=== PATIENT | male | born 1935 | race Caucasian/White ===

== ENCOUNTER 2019-11-02 03:53 | Inpatient (IN) | payer MEDICARE, OTHER ==
[~2019-11-02] VITALS: Ht 165.1 cm; Wt 75.7 kg
[2019-11-02] MEDS ORDERED: ACETAMINOPHEN 325 MG TABLET PO PRN (04:30)
[2019-11-02] MEDS ORDERED: TEMAZEPAM 7.5 MG CAPSULE PO PRN (04:30)
[2019-11-02] MEDS ORDERED: MAGNESIUM HYDROXIDE 30 ML UDC PO PRN (04:30)
[2019-11-02] MEDS ORDERED: MAG HYDROX/AL HYDROX/SIMETH 30 ML UDC PO PRN (04:30)
[2019-11-02] MEDS ORDERED: ATOR40TA PO (04:36)
[2019-11-02] MEDS ORDERED: CLON0.2T PO (04:41)
[2019-11-02] MEDS ORDERED: CLON1PAT14 TD (04:44)
[2019-11-02] MEDS ORDERED: CLOP75TA15 PO (04:45)
[2019-11-02] MEDS ORDERED: FERR325T23 PO (04:46)
[2019-11-02] MEDS ORDERED: FURO40TA5 PO (04:47)
[2019-11-02] MEDS ORDERED: INSU100I47 SQ (04:52)
[2019-11-02] MEDS ORDERED: INSU100V10 SQ (04:57)
[2019-11-02] MEDS ORDERED: LABE100T5 PO (04:58)
[2019-11-02] MEDS ORDERED: MELA3TAB41 PO (04:59)
[2019-11-02] MEDS ORDERED: clonazePAM 0.5 MG TABLET PO PRN (05:00)
[2019-11-02] MEDS ORDERED: BLOOD SUGAR DIAGNOSTIC 1 EACH STRIP IN ONE (05:00)
[2019-11-02] MEDS ORDERED: PANT40TA4 PO (05:00)
[2019-11-02] MEDS ORDERED: SITA1TAB6 PO (05:02)
[2019-11-02] MEDS ORDERED: TAMS-12 PO (05:03)
[2019-11-02] MEDS ORDERED: VALS40TA4 PO (05:04)
--- NOTE | 2019-11-02 05:17 | NUR ---
GPS RN NOTE, PAGED DR SHOLA DELAROSA THAT NEW ADMISSION HAS ARRIVED, NEEDS A ACCU CHECK ORDER WITH SLIDING SCALE FOR A BLOOD SUGAR OF 160, AND NEEDS A MEDICATION RECONCILIATION. AWAITING RESPONSE. WILL CONTINUE TO MONITOR THIS PATIENT WITH THE HELP OF STAFF.
[2019-11-02 05:19] VITALS: BP 158/73
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
[2019-11-02] MEDS: BLOOD SUGAR DIAGNOSTIC 1 EACH STRIP IN SCH ×4 (07:58→21:24)
[2019-11-02 08:00] VITALS: BP 162/86
[2019-11-02] MEDS ORDERED: CLONIDINE HCL 0.3 MG/24H PTWK 1 EA PATCH TD SCH (08:00)
[2019-11-02] MEDS ORDERED: CLONIDINE HCL 0.2 MG TABLET PO PRN (08:00)
[2019-11-02] MEDS ORDERED: DEXTROSE 50%-WATER 50 ML DISP.SYRIN IV PRN (08:00)
[2019-11-02] MEDS ORDERED: CLONIDINE HCL 0.1 MG TABLET PO PRN (08:02)
[2019-11-02] MEDS: INSULIN REGULAR, HUMAN 100 UNIT/ML 3 ML VIAL SQ PRN ×4 (08:09→21:38)
[2019-11-02] MEDS: CLOPIDOGREL BISULFATE 75 MG TABLET PO SCH (08:31)
[2019-11-02] MEDS: FERROUS SULFATE (325 MG) 325 MG/TAB TABLET PO SCH ×2 (08:31→17:01)
[2019-11-02] MEDS: PANTOPRAZOLE 40 MG TABLET.DR PO SCH (08:31)
[2019-11-02] MEDS: FUROSEMIDE 40 MG TABLET PO SCH ×2 (08:32→17:16)
[2019-11-02] MEDS: VALSARTAN 40 MG TABLET PO SCH (08:57)
[2019-11-02] MEDS: LABETALOL HCL (100MG) 100 MG TABLET PO SCH ×2 (08:57→17:17)
[2019-11-02 09:00] LABS: BASOPHILS % (AUTO) 0.7 % (0.0-2.0); EOSINOPHILS % (AUTO) 2.7 % (0.0-6.0); HEMATOCRIT 40 % (39-51); HEMOGLOBIN 13.3 g/dL (13.5-17.5); LYMPHOCYTES # (AUTO) 1.2 /CMM (0.8-4.8); MEAN CORPUSCULAR HGB CONC 33 g/dl (31.0-36.0); MEAN CORPUSCULAR VOLUME 92 fL (80-96); MONOCYTES # (AUTO) 0.4 /CMM (0.1-1.30); MONOCYTES % (AUTO) 8.2 % (2.0-12.0); NEUTROPHILS # (AUTO) 3.5 /CMM (1.8-8.9); NEUTROPHILS % (AUTO) 66.4 % (43.0-81.0); PLATELET COUNT (AUTO) 334 /CMM (150-450); RED BLOOD CELL COUNT(AUTO) 4.37 MIL/uL (4.5-6.0); WHITE BLOOD COUNT (AUTO) 5.3 K/uL (4.3-11.0)
--- NOTE | 2019-11-02 09:00 | NUR ---
RN NOTE- PT IN ROOM INTERACTIVE WHEN QUESTIONED, ALERT ORIENTED CALM DIRECTABLE NEEDS ATTENDED, MED COMPLIANT, DENIES ALL. SOMEWHAT PARANOID GUARDED.
[2019-11-02 09:14] LABS: CALCIUM, SERUM 10.1 mg/dL (8.5-10.1); CREATININE 0.9 mg/dL (0.6-1.3); POTASSIUM 4.1 mmol/L (3.5-5.1)
[2019-11-02] MEDS: LINAGLIPTIN 5 MG TABLET PO SCH (10:12)
[2019-11-02] MEDS: METFORMIN 500 MG TABLET PO SCH ×2 (10:12→17:02)
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
--- NOTE | 2019-11-02 11:19 | NUR ---
Initial Discharge Plan: Pt currently resides with his daughter, Nilam ([phone]), in her home located at [address] [place] [address]. Per pts daughter, she can no longer take care of him and needs him to be placed in a facility. SW will work with the pt and the MD regarding appropriate discharge planning. SW will form a safe and proper discharge.
[2019-11-02 16:00] VITALS: BP 136/76
[2019-11-02] MEDS ORDERED: Medication Not On Formulary EA (Sitagliptin Phos/Metformin Hcl (Janumet 50-1,000 Mg Tabl PO SCH (16:30)
[2019-11-02] MEDS: ATORVASTATIN 40 MG TABLET PO SCH (18:30)
[2019-11-02] MEDS: TAMSULOSIN 0.4 MG CAP.SR.24H PO SCH (18:30)
[2019-11-02 20:06] VITALS: BP 132/70
[2019-11-02] MEDS: OLANZAPINE 5 MG/TAB.RAPDIS PO SCH (21:24)
[2019-11-02] MEDS: INSULIN GLARGINE, 100 UNIT/ML CARTRIDGE SQ SCH (21:35)
[2019-11-03] MEDS: BLOOD SUGAR DIAGNOSTIC 1 EACH STRIP IN SCH ×4 (07:24→21:38)
[2019-11-03] MEDS: INSULIN REGULAR, HUMAN 100 UNIT/ML 3 ML VIAL SQ PRN ×3 (07:29→21:42)
[2019-11-03] MEDS: PANTOPRAZOLE 40 MG TABLET.DR PO SCH (07:48)
[2019-11-03 08:00] VITALS: BP 132/71
[2019-11-03] MEDS: FERROUS SULFATE (325 MG) 325 MG/TAB TABLET PO SCH ×2 (08:00→17:25)
[2019-11-03] MEDS: FUROSEMIDE 40 MG TABLET PO SCH ×2 (08:00→17:24)
[2019-11-03] MEDS: LINAGLIPTIN 5 MG TABLET PO SCH (08:00)
[2019-11-03] MEDS: CLOPIDOGREL BISULFATE 75 MG TABLET PO SCH (08:00)
[2019-11-03] MEDS: METFORMIN 500 MG TABLET PO SCH ×2 (08:00→17:24)
[2019-11-03] MEDS: LABETALOL HCL (100MG) 100 MG TABLET PO SCH ×2 (08:05→17:00)
[2019-11-03] MEDS: OLANZAPINE 5 MG/TAB.RAPDIS PO SCH ×2 (08:05→21:36)
[2019-11-03] MEDS: VALSARTAN 40 MG TABLET PO SCH (08:06)
[2019-11-03 16:00] VITALS: BP 119/62
[2019-11-03] MEDS: TAMSULOSIN 0.4 MG CAP.SR.24H PO SCH (17:24)
[2019-11-03] MEDS: ATORVASTATIN 40 MG TABLET PO SCH (17:25)
[2019-11-03 20:25] VITALS: BP 164/73
[2019-11-03] MEDS: INSULIN GLARGINE, 100 UNIT/ML CARTRIDGE SQ SCH (21:44)
[2019-11-04] MEDS: BLOOD SUGAR DIAGNOSTIC 1 EACH STRIP IN SCH ×4 (07:33→21:36)
[2019-11-04] MEDS: INSULIN REGULAR, HUMAN 100 UNIT/ML 3 ML VIAL SQ PRN ×2 (07:38→11:46)
[2019-11-04 08:00] VITALS: BP 122/64
[2019-11-04] MEDS: PANTOPRAZOLE 40 MG TABLET.DR PO SCH (08:10)
[2019-11-04] MEDS: METFORMIN 500 MG TABLET PO SCH ×2 (08:14→17:23)
[2019-11-04] MEDS: FERROUS SULFATE (325 MG) 325 MG/TAB TABLET PO SCH ×2 (08:14→17:28)
[2019-11-04] MEDS: LINAGLIPTIN 5 MG TABLET PO SCH (08:14)
[2019-11-04] MEDS: CLOPIDOGREL BISULFATE 75 MG TABLET PO SCH (08:14)
[2019-11-04] MEDS: FUROSEMIDE 40 MG TABLET PO SCH ×2 (08:14→17:23)
[2019-11-04] MEDS: LABETALOL HCL (100MG) 100 MG TABLET PO SCH ×2 (08:15→17:00)
[2019-11-04] MEDS: OLANZAPINE 5 MG/TAB.RAPDIS PO SCH ×2 (08:15→21:30)
[2019-11-04] MEDS: VALSARTAN 40 MG TABLET PO SCH (08:16)
[2019-11-04 16:00] VITALS: BP 125/55
[2019-11-04] MEDS: ATORVASTATIN 40 MG TABLET PO SCH (17:23)
[2019-11-04] MEDS: TAMSULOSIN 0.4 MG CAP.SR.24H PO SCH (17:24)
[2019-11-04 20:16] VITALS: BP 119/50
[2019-11-04] MEDS: INSULIN GLARGINE, 100 UNIT/ML CARTRIDGE SQ SCH (21:58)
--- NOTE | 2019-11-04 21:58 | NUR ---
RN NOTES PATIENT BLOOD SUGAR 121, NO INSULIN COVERAGE NEEDED PER SLIDING SCALE PROTOCOL. ADMINISTERED LANTUS 10 UNITS ORDERED. PROVIDED SNACKS TO PATIENT, AND WILL CONTINUE TO MONITOR PATIENT.
[2019-11-05] MEDS: BLOOD SUGAR DIAGNOSTIC 1 EACH STRIP IN SCH ×4 (07:20→21:15)
[2019-11-05] MEDS: PANTOPRAZOLE 40 MG TABLET.DR PO SCH (07:50)
[2019-11-05 08:00] VITALS: BP 144/72
[2019-11-05] MEDS: OLANZAPINE 5 MG/TAB.RAPDIS PO SCH ×2 (08:00→21:15)
[2019-11-05] MEDS: FERROUS SULFATE (325 MG) 325 MG/TAB TABLET PO SCH ×2 (08:00→17:28)
[2019-11-05] MEDS: LINAGLIPTIN 5 MG TABLET PO SCH (08:00)
[2019-11-05] MEDS: METFORMIN 500 MG TABLET PO SCH ×2 (08:00→17:28)
[2019-11-05] MEDS: VALSARTAN 40 MG TABLET PO SCH (08:01)
[2019-11-05] MEDS: FUROSEMIDE 40 MG TABLET PO SCH ×2 (08:01→17:28)
[2019-11-05] MEDS: LABETALOL HCL (100MG) 100 MG TABLET PO SCH ×2 (08:02→17:00)
[2019-11-05] MEDS: CLOPIDOGREL BISULFATE 75 MG TABLET PO SCH (08:09)
--- NOTE | 2019-11-05 14:25 | NUR ---
GROUP THERAPY: SW encouraged pt to attend group therapy on this present day to discuss discharge plan, pt was laying in bed and refused to participate. SW attempted to provide individual intervention to discuss pts mood, pt yelled at SW "get out." SW will attempt group milieu at a later time.
[2019-11-05 16:00] VITALS: BP 107/52
[2019-11-05] MEDS: INSULIN REGULAR, HUMAN 100 UNIT/ML 3 ML VIAL SQ PRN (17:22)
[2019-11-05] MEDS: ATORVASTATIN 40 MG TABLET PO SCH (17:28)
[2019-11-05] MEDS: TAMSULOSIN 0.4 MG CAP.SR.24H PO SCH (17:28)
[2019-11-05 20:49] VITALS: BP 102/57
[2019-11-05] MEDS: INSULIN GLARGINE, 100 UNIT/ML CARTRIDGE SQ SCH (21:17)
[2019-11-06] MEDS: BLOOD SUGAR DIAGNOSTIC 1 EACH STRIP IN SCH ×4 (07:48→21:42)
[2019-11-06 08:00] VITALS: BP 123/62
[2019-11-06] MEDS: PANTOPRAZOLE 40 MG TABLET.DR PO SCH (08:18)
[2019-11-06] MEDS: OLANZAPINE 5 MG/TAB.RAPDIS PO SCH ×2 (08:19→21:39)
[2019-11-06] MEDS: FERROUS SULFATE (325 MG) 325 MG/TAB TABLET PO SCH ×2 (08:19→17:06)
[2019-11-06] MEDS: LINAGLIPTIN 5 MG TABLET PO SCH (08:19)
[2019-11-06] MEDS: CLOPIDOGREL BISULFATE 75 MG TABLET PO SCH (08:19)
[2019-11-06] MEDS: FUROSEMIDE 40 MG TABLET PO SCH ×2 (08:19→17:05)
[2019-11-06] MEDS: METFORMIN 500 MG TABLET PO SCH ×2 (08:19→17:05)
[2019-11-06] MEDS: VALSARTAN 40 MG TABLET PO SCH (08:20)
[2019-11-06] MEDS: LABETALOL HCL (100MG) 100 MG TABLET PO SCH ×2 (08:20→17:06)
--- NOTE | 2019-11-06 08:52 | NUR ---
SNF Referral: SW faxed a referral to the following two facilities listed below: [facility] with attn to Admissions to the fax number: [phone] [facility] with attn to HAL and Dann to the fax number: [phone].
--- NOTE | 2019-11-06 12:22 | NUR ---
RN NOTE: ACCUCHECK 128. NO INSULIN COVERAGE
--- NOTE | 2019-11-06 14:20 | NUR ---
SNF Referral: SHRUTI faxed a referral to [facility] with attn to Anjelica to the fax number: [phone].
--- NOTE | 2019-11-06 14:57 | NUR ---
Individual Counseling: This SW met with pt. to facilitate individual counseling regarding support systems. The patient presented sitting on the edge of his bed and was calm and receptive to speaking with SW. SW attempted to engage the pt. in discussions regarding his support system. The patient stated he has a daughter, Nilam who he can reach out to in time of need. However, patient was also responding to SW in another language. Patient contunously stated, "I don't understand". The individual counseling was unsuccessful due to language barrier. Patient will be invited to the next therapeutic milieu.
[2019-11-06 16:00] VITALS: BP 145/62
--- NOTE | 2019-11-06 16:19 | NUR ---
SNF Contact: Anjelica ([phone]) from [facility] contacted the SW and stated that the pt was accepted to their facility once stable at the time of discharge.
--- NOTE | 2019-11-06 16:20 | NUR ---
Family Contact: SW called the pts daughter, Nilam ([phone]), and informed her that the pt was accepted to a facility called [facility] and that he does not have a discharge date at this time.
[2019-11-06] MEDS: TAMSULOSIN 0.4 MG CAP.SR.24H PO SCH (17:05)
[2019-11-06] MEDS: ATORVASTATIN 40 MG TABLET PO SCH (17:06)
[2019-11-06 20:02] VITALS: BP 128/60
[2019-11-06] MEDS: INSULIN GLARGINE, 100 UNIT/ML CARTRIDGE SQ SCH (21:48)
[2019-11-06] MEDS: INSULIN REGULAR, HUMAN 100 UNIT/ML 3 ML VIAL SQ PRN (21:52)
[2019-11-07] MEDS: BLOOD SUGAR DIAGNOSTIC 1 EACH STRIP IN SCH ×4 (07:35→21:14)
[2019-11-07 08:00] VITALS: BP 141/59
[2019-11-07] MEDS: PANTOPRAZOLE 40 MG TABLET.DR PO SCH (08:19)
[2019-11-07] MEDS: CLOPIDOGREL BISULFATE 75 MG TABLET PO SCH (08:19)
[2019-11-07 08:20] VITALS: BP 125/87
[2019-11-07] MEDS: METFORMIN 500 MG TABLET PO SCH ×2 (08:20→17:00)
[2019-11-07] MEDS: FUROSEMIDE 40 MG TABLET PO SCH ×2 (08:20→17:00)
[2019-11-07] MEDS: VALSARTAN 40 MG TABLET PO SCH (08:20)
[2019-11-07] MEDS: FERROUS SULFATE (325 MG) 325 MG/TAB TABLET PO SCH ×2 (08:20→17:00)
[2019-11-07] MEDS: LINAGLIPTIN 5 MG TABLET PO SCH (09:30)
[2019-11-07 09:31] VITALS: BP 132/60
[2019-11-07] MEDS: LABETALOL HCL (100MG) 100 MG TABLET PO SCH ×2 (09:31→17:00)
--- NOTE | 2019-11-07 11:30 | NUR ---
SNF Referral: Per pts daughter's request, SHRUTI faxed a referral to [facility] with attention to Elisa to the fax number: [phone]. SHRUTI also called [facility] but they are not accepting pts at this time.
[2019-11-07] MEDS: INSULIN REGULAR, HUMAN 100 UNIT/ML 3 ML VIAL SQ PRN ×2 (11:55→21:21)
--- NOTE | 2019-11-07 14:23 | NUR ---
SNF Contact: Elisa ([phone]) from [facility] contacted the and stated that they are not accepting beds at this time.
--- NOTE | 2019-11-07 14:27 | NUR ---
Family Contact: SW called the pts daughter, Nilam ([phone]), and informed her that the pt was not accepted to [facility] or [facility]. Pts daughter stated that she would like to keep trying facilities in her area.
[2019-11-07 16:00] VITALS: BP 106/54
[2019-11-07] MEDS: ATORVASTATIN 40 MG TABLET PO SCH (17:02)
[2019-11-07] MEDS: TAMSULOSIN 0.4 MG CAP.SR.24H PO SCH (17:02)
--- NOTE | 2019-11-07 19:40 | NUR ---
GPS RN OPENING NOTE: RECEIVED PT IN BED, AOX3. NO ACUTE DISTRESS. PT CALM AND COOPERATIVE, PT IS ISOLATIVE, WITHDRAWN, DENIES SI/HI. COMPLIANT WITH MEDICATION ADMINISTRATION AND PLAN OF CARE. NO AGITATION NOTED. SAFETY PRECAUTIONS IMPLEMENTED. WILL CONT TO MONITOR. ROUNDS [id number] FOR SAFETY AND BEHAVIOR.
[2019-11-07] MEDS: OLANZAPINE 5 MG/TAB.RAPDIS PO SCH (21:19)
[2019-11-07] MEDS: INSULIN GLARGINE, 100 UNIT/ML CARTRIDGE SQ SCH (21:22)
[2019-11-08] MEDS: BLOOD SUGAR DIAGNOSTIC 1 EACH STRIP IN SCH ×4 (07:38→21:45)
[2019-11-08] MEDS: INSULIN REGULAR, HUMAN 100 UNIT/ML 3 ML VIAL SQ PRN ×2 (07:45→21:54)
[2019-11-08 08:00] VITALS: BP 131/55
[2019-11-08] MEDS: FUROSEMIDE 40 MG TABLET PO SCH ×2 (09:05→17:12)
[2019-11-08] MEDS: LABETALOL HCL (100MG) 100 MG TABLET PO SCH ×2 (09:06→17:12)
[2019-11-08] MEDS: PANTOPRAZOLE 40 MG TABLET.DR PO SCH (09:06)
[2019-11-08] MEDS: METFORMIN 500 MG TABLET PO SCH ×2 (09:06→17:12)
[2019-11-08] MEDS: LINAGLIPTIN 5 MG TABLET PO SCH (09:06)
[2019-11-08] MEDS: FERROUS SULFATE (325 MG) 325 MG/TAB TABLET PO SCH ×2 (09:06→17:12)
[2019-11-08] MEDS: VALSARTAN 40 MG TABLET PO SCH (09:06)
[2019-11-08] MEDS: CLOPIDOGREL BISULFATE 75 MG TABLET PO SCH (09:06)
--- NOTE | 2019-11-08 14:23 | NUR ---
Group Note/Individual Session: SW encouraged the pt to participate in group therapy but the pt appears to be too confused with his dementia diagnosis to participate in a meaningful manner. SW informed him that he will be discharged soon to a nursing facility.
--- NOTE | 2019-11-08 14:35 | NUR ---
RN-CO: CALLED DR DANIEL [phone], PAGED HIM. TO MADE HIM AWARE HE HAS A CONSULT ORDRED BY [facility]. AWAITING TO CALL BACK.
[2019-11-08 16:00] VITALS: BP 134/67
[2019-11-08 16:33] VITALS: BP 134/67
[2019-11-08] MEDS: ATORVASTATIN 40 MG TABLET PO SCH (17:12)
[2019-11-08] MEDS: TAMSULOSIN 0.4 MG CAP.SR.24H PO SCH (17:12)
[2019-11-08 20:36] VITALS: BP 144/58
[2019-11-08] MEDS: OLANZAPINE 5 MG/TAB.RAPDIS PO SCH (21:45)
[2019-11-08] MEDS: INSULIN GLARGINE, 100 UNIT/ML CARTRIDGE SQ SCH (21:46)
[2019-11-09 08:00] VITALS: BP 132/60
[2019-11-09] MEDS: FERROUS SULFATE (325 MG) 325 MG/TAB TABLET PO SCH ×2 (08:23→17:29)
[2019-11-09] MEDS: BLOOD SUGAR DIAGNOSTIC 1 EACH STRIP IN SCH ×4 (08:23→21:50)
[2019-11-09] MEDS: CLOPIDOGREL BISULFATE 75 MG TABLET PO SCH (08:23)
[2019-11-09] MEDS: LINAGLIPTIN 5 MG TABLET PO SCH (08:23)
[2019-11-09] MEDS: PANTOPRAZOLE 40 MG TABLET.DR PO SCH (08:23)
[2019-11-09] MEDS: METFORMIN 500 MG TABLET PO SCH ×2 (08:24→17:29)
[2019-11-09] MEDS: FUROSEMIDE 40 MG TABLET PO SCH ×2 (08:24→17:29)
[2019-11-09] MEDS: VALSARTAN 40 MG TABLET PO SCH (08:27)
[2019-11-09] MEDS: LABETALOL HCL (100MG) 100 MG TABLET PO SCH ×2 (08:27→17:30)
--- NOTE | 2019-11-09 15:17 | NUR ---
GROUP NOTE/INDIVIDUAL SESSION: SW encouraged the pt to participate in group therapy but the pt appears to be too confused with his dementia diagnosis to participate in a meaningful manner. Pt not appropriate for group/individual session at this time.
[2019-11-09 16:00] VITALS: BP 118/59
[2019-11-09] MEDS: TAMSULOSIN 0.4 MG CAP.SR.24H PO SCH (17:29)
[2019-11-09] MEDS: ATORVASTATIN 40 MG TABLET PO SCH (17:30)
--- NOTE | 2019-11-09 19:40 | NUR ---
GPS RN OPENING NOTE: RECEIVED PT IN BED, AOX3. NO ACUTE DISTRESS. PT CALM AND COOPERATIVE, PT IS ISOLATIVE, WITHDRAWN, DENIES SI/HI. COMPLIANT WITH MEDICATION ADMINISTRATION AND PLAN OF CARE. NO AGITATION NOTED. SAFETY PRECAUTIONS IMPLEMENTED. WILL CONT TO MONITOR SAFETY AND BEHAVIOR.
[2019-11-09 20:38] VITALS: BP 133/58
[2019-11-09] MEDS: OLANZAPINE 5 MG/TAB.RAPDIS PO SCH (21:42)
[2019-11-09] MEDS: INSULIN GLARGINE, 100 UNIT/ML CARTRIDGE SQ SCH (21:56)
[2019-11-10 07:16] LABS: BASOPHILS % (AUTO) 0.7 % (0.0-2.0); EOSINOPHILS % (AUTO) 5.8 % (0.0-6.0); HEMATOCRIT 36 % (39-51); LYMPHOCYTES # (AUTO) 1.3 /CMM (0.8-4.8); LYMPHOCYTES % (AUTO) 23.7 % (20.0-44.0); MEAN CORPUSCULAR HGB CONC 33 g/dl (31.0-36.0); MEAN CORPUSCULAR VOLUME 90 fL (80-96); MONOCYTES # (AUTO) 0.6 /CMM (0.1-1.30); MONOCYTES % (AUTO) 11.2 % (2.0-12.0); NEUTROPHILS # (AUTO) 3.2 /CMM (1.8-8.9); NEUTROPHILS % (AUTO) 58.6 % (43.0-81.0); PLATELET COUNT (AUTO) 328 /CMM (150-450); RED BLOOD CELL COUNT(AUTO) 3.99 MIL/uL (4.5-6.0); WHITE BLOOD COUNT (AUTO) 5.5 K/uL (4.3-11.0)
[2019-11-10 07:22] LABS: MAGNESIUM 1.7 mg/dL (1.8-2.4); PHOSPHORUS 2.7 mg/dL (2.5-4.9); POTASSIUM 3.7 mmol/L (3.5-5.1)
[2019-11-10] MEDS: BLOOD SUGAR DIAGNOSTIC 1 EACH STRIP IN SCH ×4 (07:43→21:01)
[2019-11-10 08:00] VITALS: BP 134/66
[2019-11-10] MEDS: CLOPIDOGREL BISULFATE 75 MG TABLET PO SCH (08:30)
[2019-11-10] MEDS: LINAGLIPTIN 5 MG TABLET PO SCH (08:30)
[2019-11-10] MEDS: FERROUS SULFATE (325 MG) 325 MG/TAB TABLET PO SCH ×2 (08:31→16:31)
[2019-11-10] MEDS: METFORMIN 500 MG TABLET PO SCH ×2 (08:31→16:32)
[2019-11-10] MEDS: FUROSEMIDE 40 MG TABLET PO SCH ×2 (08:31→16:32)
[2019-11-10] MEDS: PANTOPRAZOLE 40 MG TABLET.DR PO SCH (08:31)
[2019-11-10] MEDS: LABETALOL HCL (100MG) 100 MG TABLET PO SCH ×2 (08:31→16:33)
[2019-11-10] MEDS: VALSARTAN 40 MG TABLET PO SCH (08:32)
[2019-11-10] MEDS ORDERED: MAGNESIUM OXIDE 400 MG TABLET PO ONE (10:00)
--- NOTE | 2019-11-10 12:20 | NUR ---
GPS/RN PT WAS ASSESSED BY DR JO VIA TELEMEDICINE. PT IS OVERLY AGITATED FOLLOWING THE CONVERSATION WITH HIS DAUGHTER.
[2019-11-10 16:00] VITALS: BP 120/52
[2019-11-10] MEDS: TAMSULOSIN 0.4 MG CAP.SR.24H PO SCH (16:32)
[2019-11-10] MEDS: ATORVASTATIN 40 MG TABLET PO SCH (16:33)
[2019-11-10 16:34] VITALS: BP 124/61
--- NOTE | 2019-11-10 19:20 | NUR ---
GPS/RN NO INSULIN COVERAGE GIVEN PT REFUSED DINNER. ENCOURAGED TO EAT X3
[2019-11-10 20:01] VITALS: BP 131/60
[2019-11-10] MEDS: INSULIN GLARGINE, 100 UNIT/ML CARTRIDGE SQ SCH (21:02)
[2019-11-10] MEDS: INSULIN REGULAR, HUMAN 100 UNIT/ML 3 ML VIAL SQ PRN (21:02)
[2019-11-10] MEDS: OLANZAPINE 5 MG/TAB.RAPDIS PO SCH (21:03)
--- NOTE | 2019-11-10 21:08 | NUR ---
GPS RN NOTES: PT BLOOD SUGAR 86. NO INSULIN COVERAGE DUE TO SLIDING SCALE. PT REFUSED LANTUS DUE TO BLOOD SUGAR LEVEL. PT INCREASED AGITATION WHEN OFFERED SNACK. PT WAS ABLE TO EAT SMALL SNACK PROVIDED. WILL ENCOURAGE THOUGH THE SHIFT TO HAVE SNACKS AT NIGHT, CONTINUE TO MONITOR
--- NOTE | 2019-11-11 01:18 | NUR ---
GPS RN NOTES: REFUSED PRN UPON DOING ROUNDS, PT AWAKE GETTING OUT OF BED, SPEAKING LOUDLY IN SWISS. ENCOURAGE PT EXPRESS THOUGHTS AND FEELINGS. OFFERED PT RESTORIL PRN PO ORDERED PT REFUSED AND STATED, "NO SLEEP." PT EASILY AGITATED AND TURING ON LIGHTS OFF AND ON. OFFERED PT KLONOPIN PRN PO ORDERED. PT STILL REFUSED X3. PLACE PT IN [place] CHAIR IN THE DAY ROOM WITH STAFF. STAFF MONITORING FOR SAFETY. CONTINUE TO MONITOR
[2019-11-11] MEDS: BLOOD SUGAR DIAGNOSTIC 1 EACH STRIP IN SCH ×4 (07:30→21:48)
[2019-11-11 08:00] VITALS: BP 138/69
--- NOTE | 2019-11-11 08:35 | NUR ---
GPS/RN PT REFUSED ACCUCHECK IN AM. PT REFUSED TO EAT BREAKFAST, CLAIMING THAT HE IS ON " HUNGER STRIKE". ENCOURAGED PT EAT. PT ATE 90% OF THE MEAL. WILL CONTINUE TO MONITOR
[2019-11-11] MEDS: PANTOPRAZOLE 40 MG TABLET.DR PO SCH (08:43)
[2019-11-11] MEDS: FUROSEMIDE 40 MG TABLET PO SCH ×2 (08:43→16:51)
[2019-11-11] MEDS: FERROUS SULFATE (325 MG) 325 MG/TAB TABLET PO SCH ×2 (08:43→16:51)
[2019-11-11] MEDS: METFORMIN 500 MG TABLET PO SCH ×2 (08:43→16:51)
[2019-11-11] MEDS: LABETALOL HCL (100MG) 100 MG TABLET PO SCH ×2 (08:44→16:51)
[2019-11-11] MEDS: VALSARTAN 40 MG TABLET PO SCH (08:44)
[2019-11-11] MEDS: CLOPIDOGREL BISULFATE 75 MG TABLET PO SCH (08:44)
[2019-11-11] MEDS: LINAGLIPTIN 5 MG TABLET PO SCH (08:46)
--- NOTE | 2019-11-11 13:05 | NUR ---
GPS/RN PT STARTED TO EAT. PT STATES: " I AM OFF THE HUNGER STRIKE". ATE 90% OF THE LUNCH.
[2019-11-11 16:00] VITALS: BP 108/52
[2019-11-11] MEDS: TAMSULOSIN 0.4 MG CAP.SR.24H PO SCH (16:52)
[2019-11-11] MEDS: ATORVASTATIN 40 MG TABLET PO SCH (16:52)
[2019-11-11 20:12] VITALS: BP 126/64
[2019-11-11] MEDS: OLANZAPINE 5 MG/TAB.RAPDIS PO SCH (21:15)
[2019-11-11] MEDS: INSULIN GLARGINE, 100 UNIT/ML CARTRIDGE SQ SCH (21:49)
[2019-11-12] MEDS: BLOOD SUGAR DIAGNOSTIC 1 EACH STRIP IN SCH ×4 (07:34→21:44)
[2019-11-12] MEDS: INSULIN REGULAR, HUMAN 100 UNIT/ML 3 ML VIAL SQ PRN ×3 (07:37→21:46)
[2019-11-12 08:00] VITALS: BP 131/52
[2019-11-12] MEDS: METFORMIN 500 MG TABLET PO SCH ×2 (08:02→17:02)
[2019-11-12] MEDS: FUROSEMIDE 40 MG TABLET PO SCH ×2 (08:02→17:02)
[2019-11-12] MEDS: PANTOPRAZOLE 40 MG TABLET.DR PO SCH (08:02)
[2019-11-12] MEDS: LINAGLIPTIN 5 MG TABLET PO SCH (08:03)
[2019-11-12] MEDS: FERROUS SULFATE (325 MG) 325 MG/TAB TABLET PO SCH ×2 (08:03→17:02)
[2019-11-12] MEDS: VALSARTAN 40 MG TABLET PO SCH (08:03)
[2019-11-12] MEDS: CLOPIDOGREL BISULFATE 75 MG TABLET PO SCH (08:03)
[2019-11-12] MEDS: LABETALOL HCL (100MG) 100 MG TABLET PO SCH ×2 (08:04→17:02)
--- NOTE | 2019-11-12 10:11 | NUR ---
Family Contact: SHRUTI called the pts daughter, Nilam ([phone]), in response to her voicemail. SHRUTI informed her that the pt does not have a discharge order and therefore he cannot be discharged to [facility] today. She stated that she does not think that the facility will hold the bed and asked the SW to speak to the MD regarding a discharge for the pt tomorrow. SHRUTI stated that she will follow up with the facility and the MD regarding this pts discharge.
--- NOTE | 2019-11-12 12:54 | NUR ---
Family Contact: SHRUTI called the pts daughter, Nilam ([phone]), and informed her that the pt will be discharged the following day to [facility].
--- NOTE | 2019-11-12 13:05 | NUR ---
SNF Contact: SHRUTI contacted Anjelica ([phone]) from [facility] and informed her to keep the pts bed until the next day as the MD gave the discharge order. She stated that she can keep the pts bed until tomorrow.
[2019-11-12 16:00] VITALS: BP 142/67
--- NOTE | 2019-11-12 16:04 | NUR ---
GROUP THERAPY: SW encouraged the pt to participate in group therapy, however, pt was asleep and not easily roused by verbal cues.
[2019-11-12] MEDS: ATORVASTATIN 40 MG TABLET PO SCH (17:01)
[2019-11-12] MEDS: TAMSULOSIN 0.4 MG CAP.SR.24H PO SCH (17:02)
[2019-11-12 20:00] VITALS: BP 159/77
[2019-11-12 20:05] VITALS: BP 159/77
[2019-11-12 20:30] VITALS: BP 116/59
[2019-11-12] MEDS: OLANZAPINE 5 MG/TAB.RAPDIS PO SCH (21:51)
[2019-11-12] MEDS: INSULIN GLARGINE, 100 UNIT/ML CARTRIDGE SQ SCH (22:00)
--- NOTE | 2019-11-12 22:39 | NUR ---
HELD LANTUS PATIENT IS SLEEPING AT THIS TIME, ACCU CHECK WAS 134MG/DL, REFUSED TO HAVE SNACK AT THIS TIME, SLIDING SCALE INSULIN WAS GIVEN EARLIER WHEN PATIENT HAD SOME SNACK BUT REFUSED LANTUS AT THAT TIME. PATIENT HAS HISTORY OF HAVING BLOOD SUGAR BETWEEN 80-90MG/DL. HELD LANTUS (LONG ACTING) SCHEDULED TO PREVENT HYPOGLYCEMIA SINCE PATIENT IS REFUSING TO HAVE SNACK AT THIS TIME & WANTS TO SLEEP.
--- NOTE | 2019-11-13 00:43 | NUR ---
GPS RN NOTE PATIENT IS AWAKE & AMBULATING IN THE HALLWAY WITH HIS WALKER, PATIENT VERBALIZED RIGHT UPPER GUM PAIN, PAIN MEDICINE TYLENOL OFFERED, PATIENT REFUSED TO TAKE ANY PAIN MEDICINE & STATED, " IT'S VERY LITTLE PAIN, VERY LITTLE PAIN, NO MEDICINE." ALSO OFFERED SLEEPING MEDICINE IF PATIENT IS UNABLE TO SLEEP BUT PATIENT REFUSED SLEEPING MEDICINE WELL SAYING," NO SLEEP MEDICINE, I WILL READ, READ & WILL SLEEP." ASSISTED PATIENT BACK TO HIS ROOM SAFELY. WILL CONTINUE TO MONITOR.
--- NOTE | 2019-11-13 01:24 | NUR ---
GPS RN NOTE PATIENT IS LAYING IN BED, AWAKE, OFFERED HIM SLEEPING MEDICINE AGAIN, PATIENT GOT UPSET & SAID," NO MEDICINE, NO MEDICINE." PATIENT ASKED FOR EXTRA BLANKET & SAID HE WOULD TRY TO SLEEP NOW & DO NOT WANT SLEEPING MEDICINE. WILL CONTINUE TO MONITOR.
--- NOTE | 2019-11-13 01:53 | NUR ---
GPS RN NOTE PATIENT IS SLEEPING COMFORTABLY AT THIS TIME.
--- NOTE | 2019-11-13 07:30 | NUR ---
RECEIVED PT. THIS AM ALERT AND ORIENTED X2.NO COMPLAINTS OFFERED.VS STABLE.
[2019-11-13] MEDS: BLOOD SUGAR DIAGNOSTIC 1 EACH STRIP IN SCH (07:52)
[2019-11-13 08:00] VITALS: BP 144/80
[2019-11-13] MEDS: PANTOPRAZOLE 40 MG TABLET.DR PO SCH (09:32)
[2019-11-13] MEDS: METFORMIN 500 MG TABLET PO SCH (09:33)
[2019-11-13] MEDS: FUROSEMIDE 40 MG TABLET PO SCH (09:33)
[2019-11-13] MEDS: VALSARTAN 40 MG TABLET PO SCH (09:33)
[2019-11-13] MEDS: FERROUS SULFATE (325 MG) 325 MG/TAB TABLET PO SCH (09:34)
[2019-11-13] MEDS: LINAGLIPTIN 5 MG TABLET PO SCH (09:34)
[2019-11-13] MEDS: CLOPIDOGREL BISULFATE 75 MG TABLET PO SCH (09:34)
--- NOTE | 2019-11-13 10:04 | NUR ---
DISCHARGE NOTE: Pt will be discharged to [facility] ([facility]) located at [address] [place] [address]; ([phone]). Pt will be transported via [facility] at 11AM. Pts daughter, Nilam ([phone]), was informed and agrees with discharge plan. Pts mood is euthymic with congruent affect. Pt denied suicidal/homicidal ideation and denied visual/auditory hallucinations. Pt will be under the care of Psychiatrist: Dr. Danitza Cody located at [address], [address] [place] [address]; and Map And Chart Mounter: Dr. Shahab Cline located at [address], [address] [place] [address]; . The multidisciplinary exit care form was done, printed, signed, and given to the patient.
--- NOTE | 2019-11-13 10:30 | NUR ---
MAKING PT. READY FOR DISCHARGE.TO TRANSFER TO [facility] TODAY.SIGNWRITER EXPLAINING COURSE OF EVENTS FOR THE DAY.
[2019-11-13 10:47] VITALS: BP 157/67
[2019-11-13] MEDS: LABETALOL HCL (100MG) 100 MG TABLET PO SCH (10:47)
--- NOTE | 2019-11-13 11:05 | NUR ---
ALL PAPERS SIGNED BY PT.PT. DENIES SUICIDAL OR HOMICIDAL IDEATION.REPORT TO DRIVERS.REPORT CALLED TO RAFFI AT [facility].TAKEN VIA AMB. TO FACILITY.
== END 2019-11-13 10:45 | DRG 885 ==
LOC: GPS 03:53
PROVIDERS: ADMIT Psychiatry & Neurology Psychiatry; ATTEND Nurse Practitioner Acute Care
DX: F29 Unspecified psychosis not due to a substance or known physiological condition (principal); E11.65 Type 2 diabetes mellitus with hyperglycemia; F03.91 Unspecified dementia, unspecified severity, with behavioral disturbance; F41.9 Anxiety disorder, unspecified; I10 Essential (primary) hypertension; M19.90 Unspecified osteoarthritis, unspecified site; I25.10 Atherosclerotic heart disease of native coronary artery without angina pectoris; M81.0 Age-related osteoporosis without current pathological fracture; Z86.711 Personal history of pulmonary embolism; Z86.73 Personal history of transient ischemic attack (TIA), and cerebral infarction without residual deficits; Z95.1 Presence of aortocoronary bypass graft; M10.9 Gout, unspecified; M62.84 Sarcopenia; F31.9 Bipolar disorder, unspecified; Z79.84 Long term (current) use of oral hypoglycemic drugs
CPT/HCPCS: 36415; 70450-TC; 80048-TC; 80061-TC; 82962-TC; 83735-TC; 84100-TC; 84443-TC; 85025-TC; 87081-TC; 97116-TC; 97530-TC; J1815